=== PATIENT | male | born 1950 | race African-American/Black ===

== ENCOUNTER → 2017-02-09 18:57 | Outpatient (CLI) | payer MEDICARE ==
[2011-03-23 09:29] VITALS: BMI 35.0
== END | disposition home or self-care (01) ==
LOC: D.LABREF 18:57
DX: A54.9 Gonococcal infection, unspecified (principal)

== ENCOUNTER → 2017-03-01 10:04 | Outpatient (CLI) | payer MEDICARE ==
[2011-03-23 09:29] VITALS: BMI 35.0
== END | disposition home or self-care (01) ==
LOC: D.CT 10:04
DX: I73.9 Peripheral vascular disease, unspecified (principal)

== ENCOUNTER → 2017-04-04 11:26 | Outpatient (CLI) | payer MEDICARE ==
[2011-03-23 09:29] VITALS: BMI 35.0
== END | disposition home or self-care (01) ==
LOC: D.RAD 11:26
DX: Z11.1 Encounter for screening for respiratory tuberculosis (principal)

== ENCOUNTER → 2017-05-29 13:04 | Outpatient (CLI) | payer MEDICARE ==
[2011-03-23 09:29] VITALS: BMI 35.0
[~2017-05-29 13:04] MED LIST: ASPIRIN325 MG PO; BENADRYL25 MG PO; HYDROCODONE-APA1 TAB PO; LANOXIN125 MCG PO; METOPROLOL TART50 MG PO; MOBIC7.5 MG PO; NEXIUM40 MG PO; NORVASC10 MG PO; RENA-VITE TABL0.8 MG PO; RESTORIL15 MG PO; ZYLOPRIM100 MG PO
[2017-06-28 08:28] VITALS: BMI 33.7
== END | disposition home or self-care (01) ==
LOC: D.US 13:00
DX: M79.604 Pain in right leg (principal)

== ENCOUNTER → 2017-06-19 13:03 | Outpatient (CLI) | payer MEDICARE ==
[2011-03-23 09:29] VITALS: BMI 35.0
[2017-06-28 08:28] VITALS: BMI 33.7
== END | disposition home or self-care (01) ==
LOC: D.CT 06-12 11:00
DX: I73.9 Peripheral vascular disease, unspecified (principal)

== ENCOUNTER 2017-06-28 07:25 | Outpatient (CLI) | payer MEDICARE ==
[~2017-06-28] VITALS: Ht 185.4 cm; Wt 115.9 kg
--- NOTE | ~2017-06-28 | HEMODYNAMI ---
PATIENT:MORRO DAWSON MEDICAL RECORD: [id number] : 50 LOCATION:[facility] ADMISSION DATE: 06/28/17 Generatedon:06/28/201712:09 Patient name: MORRO DAWSON Patient #: [id number] SSN: : 1950 Date of study: 06/28/2017 Page: Of Hemodynamic Procedure Report Patient Data Patient Demographics Procedure consent was obtained First Name: MORRO Gender: Male Last Name: EUNICE : 1950 Middle Initial: JOSY Age: 66 year(s) Patient #: [id number] Race: Black Additional ID: [id number] Contact details Address: [address] [place] [address] State: [place] City: [facility] Zip code: [address] Admission Admission Data Admission Date: 06/28/2017 Admission Time: 7:25 Procedure Procedure Types Cath Procedure Peripheral Cath Diagnostic Procedure Abd/Extremity Extremities AFRO Lower Ext Arterio Procedure Description Procedure Date Procedure Date: 06/28/2017 Procedure Start Time: 10:00 Procedure Staff Name Function Henrry Carvalho MD Performing Physician Claude Burnham RT Monitor Aysha Jeffrey RN Nurse Jovita Rucker RN Nurse Procedure Data Cath Procedure Fluoroscopy Diagnostic fluoroscopy Total fluoroscopy Time: time: 28.4 min 28.4 min Diagnostic fluoroscopy Total fluoroscopy dose: dose: 1166 mGy 1166 mGy Contrast Material Contrast Material Type Amount (ml) Isovue 300 180 Entry Location Entry Primary Successful Side Size Upsize Upsize Entry Closure Succes sful Closure Location (Fr) 1 (Fr) 2 (Fr) Remarks Device Remarks Femoral Right 5 Fr 6 Fr Exoseal artery Long Procedure Medications Medication Administration Route Dosage Lidocaine 1% added to field 20 Heparin Flush Bag added to field 3 (1000units/500ml NS) Fentanyl I.V. 50 mcg Versed I.V. 1 mg Oxygen NC 3 l/min Fentanyl I.V. 50 mcg Versed I.V. 1 mg Fentanyl I.V. 50 mcg Versed I.V. 1 mg Versed I.V. 1 mg Fentanyl I.V. 50 mcg Heparin Bolus I.V. 5000 units Versed I.V. 1 mg Fentanyl I.V. 50 mcg Fentanyl I.V. 50 mcg Versed I.V. 1 mg Fentanyl I.V. 50 mcg Versed I.V. 1 mg Versed I.V. 1 mg Fentanyl I.V. 50 mcg Hemodynamics Rest Heart Rate: 59 (bpm) Snapshots Pre Cath Intra NCS Post Cath Vital Signs Time Heart Resp SPO2 etCO2 NIBP (mmHg) Rhythm Pain Status Sedation Rate (ipm) (%) (mmHg) Level (bpm) 9:57:49 58 15 94 25 151/74(123) NSR 4 (11) , 10(A) Distressing 10:02:11 59 20 95 37.9 146/78(119) NSR 4 (11) , 10(A) Distressing 10:06:33 58 16 95 34.9 142/66(117) NSR 3 (11) , 10(A) Tolerable 10:10:49 58 24 91 0 144/81(125) NSR 3 (11) , 10(A) Tolerable 10:15:05 59 1 99 26.5 128/70(109) NSR 2 (11) , 10(A) Uncomfortable 10:19:23 55 8 99 20.5 132/67(109) NSR 2 (11) , 8(A) Uncomfortable 10:23:41 54 13 99 28.1 139/68(109) NSR 2 (11) , 8(A) Uncomfortable 10:28:02 55 11 100 25 136/73(111) NSR 1 (11) , Very 8(A) mild 10:32:22 54 11 100 30.4 138/66(111) NSR 1 (11) , Very 8(A) mild 10:36:42 53 12 100 31.8 135/69(108) NSR 1 (11) , Very 8(A) mild 10:41:00 53 6 100 31.9 137/74(114) NSR 1 (11) , Very 8(A) mild 10:45:20 54 11 100 24.3 139/74(119) NSR 2 (11) , 8(A) Uncomfortable 10:49:40 55 4 98 0 133/75(114) NSR 1 (11) , Very 8(A) mild 10:53:56 53 5 98 28.8 125/77(114) NSR 1 (11) , Very 8(A) mild 10:58:55 52 6 99 28.1 Measuring NSR 1 (11) , Very 8(A) mild 10:59:01 52 6 99 28.1 137/71(114) NSR 1 (11) , Very 8(A) mild 11:04:00 52 8 99 29.6 Measuring NSR 1 (11) , Very 8(A) mild 11:04:07 53 8 99 30.4 132/65(112) NSR 1 (11) , Very 8(A) mild 11:09:05 52 7 99 33.4 Measuring NSR 1 (11) , Very 8(A) mild 11:09:14 52 7 100 31.1 140/70(116) NSR 1 (11) , Very 8(A) mild 11:14:13 60 7 99 30.3 Measuring NSR 1 (11) , Very 8(A) mild 11:14:15 60 7 99 30.3 132/77(110) NSR 1 (11) , Very 8(A) mild 11:18:35 52 4 100 36.4 140/69(118) NSR 1 (11) , Very 8(A) mild 11:23:34 54 5 100 17.4 Measuring NSR 1 (11) , Very 8(A) mild 11:23:36 53 5 100 17.4 139/75(113) NSR 1 (11) , Very 8(A) mild 11:27:56 52 3 97 23.5 137/75(104) NSR 1 (11) , Very 8(A) mild 11:32:08 50 10 96 31.8 133/77(115) NSR 1 (11) , Very 8(A) mild 11:37:07 50 13 95 28.8 Measuring NSR 1 (11) , Very 8(A) mild 11:37:26 59 10 95 28.8 134/75(127) NSR 1 (11) , Very 8(A) mild 11:41:46 51 6 96 32.6 144/72(113) NSR 1 (11) , Very 8(A) mild 11:46:08 52 7 94 39.4 143/75(111) NSR 1 (11) , Very 8(A) mild 11:50:28 51 13 95 39.4 140/77(116) NSR 1 (11) , Very 8(A) mild 11:55:27 51 7 93 31.1 Measuring NSR 1 (11) , Very 8(A) mild 11:55:35 51 7 93 31.1 136/72(99) NSR 1 (11) , Very 8(A) mild 12:00:34 94 31.1 Measuring NSR 1 (11) , Very 8(A) mild 12:00:51 94 32.6 136/76(114) NSR 1 (11) , Very 8(A) mild 12:05:50 96 36.4 Measuring NSR 1 (11) , Very 8(A) mild 12:05:58 96 32.6 157/72(129) NSR 1 (11) , Very 8(A) mild Medications Time Medication Route Dose Verified Delivered Reason Notes Ef fectiveness by by 10:02:03 Lidocaine 1% added 20ml M J Long M J Long used for to vial MD ANSARI procedure field 10:02:23 Heparin Flush added 3 b M J Long M J Long used for Bag to ags MD ANSARI procedure (1000units/500ml field NS) 10:02:37 Fentanyl I.V. 50 M J Long Jovita for sedation mcg MD Chaim BROOKS 10:02:49 Versed I.V. 1 mg M J Long Jovita for sedation MD Chaim BROOKS 10:03:02 Oxygen NC 3 M J Long Jovita l/min MD Chaim BROOKS 10:06:08 Fentanyl I.V. 50 M J Long Jovita for sedation mcg MD Chaim BROOKS 10:06:16 Versed I.V. 1 mg M J Long Jovita for sedation MD Chaim BROOKS 10:13:11 Fentanyl I.V. 50 M J Long Jovita for sedation mcg MD Chaim BROOKS 10:13:18 Versed I.V. 1 mg M J Long Jovita for sedation MD Chaim BROOKS 10:30:37 Versed I.V. 1 mg M J Long Jovita for sedation MD Chaim BROOKS 10:30:47 Fentanyl I.V. 50 M J Long Jovita for sedation mcg MD Chaim BROOKS 10:47:07 Heparin Bolus I.V. 5000 M J Long Jovita for units MD Chaim BROOKS antiplatelet therapy 10:47:22 Versed I.V. 1 mg M J Long Jovita for sedation MD Chaim BROOKS 10:47:30 Fentanyl I.V. 50 M J Long Jovita for sedation mcg MD Chaim BROOKS 11:17:32 Fentanyl I.V. 50 M J Long Jovita for sedation mcg MD Chaim BROOKS 11:17:38 Versed I.V. 1 mg M J Long Jovita for sedation MD Chaim BROOKS 11:26:47 Fentanyl I.V. 50 M J Long Jovita for sedation mcg MD Chaim BROOKS 11:26:54 Versed I.V. 1 mg M J Long Jovita for sedation MD Chaim BROOKS 11:37:06 Versed I.V. 1 mg M J Long Jovita for sedation MD Chaim BROOKS 11:37:13 Fentanyl I.V. 50 M J Long Jovita for sedation mcg MD Chaim BROOKS Procedure Log Time Note 9:29:14 Claude Burnham RT (R) (CV) sent for patient. Start room use. 9:29:26 Time tracking: Regular hours (M-F 7:00 - 5:00) 9:29:34 Plan of Care:Hemodynamics will remain stable., Cardiac rhythm will remain stable., Comfort level will be maintained., Respiratory function will remain adequate., Patient/ family verbilizes understanding of procedure., Procedure tolerated without complication., Recovers from procedure without complications.. 9:29:39 Patient received from Outpatients to IR Alert and oriented. Tansferred to table in Supine position. 9:29:42 Correct patient and procedure confirmed by team. 9:29:44 Signed procedure consent form obtained from patient. 9:29:45 ECG and BP/O2 sat monitors applied to patient. 9:29:46 Full Disclosure recording started 9:29:47 - 9:29:51 H&P Date Dictated: 06/28/2017 H&P Addendum completed by physician on day of procedure. (MUST COMPLETE FOR ALL OUTPATIENTS). 9:29:51 Pre-procedure instructions explained to patient. 9:29:52 Pre-op teaching completed and patient verbalized understanding. 9:29:53 Family in waiting room. 9:29:54 Patient NPO since Midnight. 9:29:58 Is the patient allergic to Iodine/contrast media? No. 9:30:00 Is patient on blood thinner?No 9:30:01 Patient diabetic? Yes. 9:30:04 If diabetic: On Metformin? No 9:30:06 - 9:30:06 ----Pre-sedation anethsthesia assessment.---- 9:30:08 Previous problem with sedation/anesthesia? No ? 9:30:09 Snore? Yes 9:30:11 Sleep apnea? Yes 9:30:13 Deviated septum? No 9:30:14 Opens mouth fully? Yes 9:30:15 Sticks out tongue? Yes 9:30:18 Airway obstruction? No ? 9:30:20 Dentures? No ? 9:30:26 Use device set IR Diagnostic 9:30:27 Tegaderm 4 x 4 (1626W) opened to sterile field. 9:30:28 Sterile Angiographic Pack opened to sterile field. 9:30:28 Bag Decanter (2002S) opened to sterile field. 9:30:30 ACIST Hand Control (42202) opened to sterile field. 9:30:30 ACIST Syringe (15665) opened to sterile field. 9:30:31 ACIST Manifold (63913) opened to sterile field. 9:43:46 Pre procedure: right dorsailis pedis pulse Doppler 9:43:57 Pre procedure: left dorsailis pedis pulse Doppler 9:44:08 Patient pain scale 0/10 no pain. 9:44:19 IV patent on arrival in right forearm with 0.9% NaCl at O. 9:44:21 Sharps counted by scrub and verified by R.N. 9:44:21 Alarms reviewed by R. N. 9:44:27 Bilateral groins area was prepped with chlora-prep and draped in steril e fashion 9:56:36 Vital chart was started 9:56:37 Baseline sample Acquired. 9:59:49 Physician arrived 9:59:50 --------ALL STOP TIME OUT------ 9:59:53 Bilateral groins site verified by team. 10:00:02 Sedation plan: IV Moderate Sedation Medication:Versed, Fentanyl 10:00:13 Final Timeout: patient, procedure, and site verified with staff and physician. All members of the team are in agreement. 10:00:26 Procedure started. 10:00:32 Local anesthetic to right femoral artery with Lidocaine 1% by Henrry Carvalho MD.INITIAL ACCESS ONLY 10:00:48 A 5 Fr sheath was inserted into the Right Femoral artery 10:01:27 Micropuncture VSI 4FR kit opened to sterile field. 10:01:28 DOC .035 wire (B42599) opened to sterile field. 10:01:29 SHEATH 5FR [place] (TCI251) opened to sterile field. 10:01:44 TUBING Contrast Injection High Pressure (BHB101B) opened to sterile field. 10:02:03 Lidocaine 1% 20ml vial added to field was administered by Henrry Carvalho MD; used for procedure; 10:02:23 Heparin Flush Bag (1000units/500ml NS) 3 b ags added to field was administered by Henrry Carvalho MD; used for procedure; 10:02:37 Fentanyl 50 mcg I.V. was administered by Jovita Rucker RN; for sedation ; 10:02:49 Versed 1 mg I.V. was administered by Jovita Rucker RN; for sedation; 10:03:02 Oxygen 3 l/min NC was administered by Jovita Rucker RN; ; 10:04:43 Angiodynamics Omniflush 5Fr 65cm (05083139) opened to sterile field. 10:06:08 Fentanyl 50 mcg I.V. was administered by Jovita Rucker RN; for sedation ; 10:06:16 Versed 1 mg I.V. was administered by Jovita Rucker RN; for sedation; 10:13:11 Fentanyl 50 mcg I.V. was administered by Jovita Rucker RN; for sedation ; 10:13:18 Versed 1 mg I.V. was administered by Jovita Rucker RN; for sedation; 10:27:50 GLIDE WIRE ANGLE 260cm (AB3165) opened to sterile field. 10:28:47 TORQUE DEVICE PLASTIC .038 ( TD01) opened to sterile field. 10:28:48 GLIDE CATHETER 5FR ANGLED 100cm (CG508) opened to sterile field. 10:30:37 Versed 1 mg I.V. was administered by Jovita Rucker RN; for sedation; 10:30:47 Fentanyl 50 mcg I.V. was administered by Jovita Rucker RN; for sedation ; 10:41:27 COLVIN 260 wire (T29134) opened to sterile field. 10:41:28 BENTSON 145cm wire (K93061) opened to sterile field. 10:41:28 CXI SUPPORT .035 135 CM STR catheter (N34150) opened to sterile field. 10:41:29 CHOICE PT Extra Support J 300cm guide wire ([id number]) opened to steril e field. 10:41:35 SHEATH 6FR Destination (RSR01) opened to sterile field. 10:41:49 Sheath upsized to a 6 Fr Long. 10:47:07 Heparin Bolus 5000 units I.V. was administered by Jovita Rucker RN; for antiplatelet therapy; 10:47:22 Versed 1 mg I.V. was administered by Jovita Rucker RN; for sedation; 10:47:30 Fentanyl 50 mcg I.V. was administered by Jovita Rucker RN; for sedation ; 10:55:41 CHOICE PT Extra Support J 300cm guide wire ([id number]) opened to steril e field. 11:01:00 CXI SUPPORT .018 150CM STR catheter (P15026) opened to sterile field. 11:05:33 Inflate balloon Inflation number: 1 A [place] Plus 2 x 2 x 130 Balloon ([id number]) was prepped and advanced across the Undefined1, then inflated 11:11:26 INFLATOR Merit BasixCompak (BB1514) opened to sterile field. 11:17:32 Fentanyl 50 mcg I.V. was administered by Jovita Rucker RN; for sedation ; 11:17:38 Versed 1 mg I.V. was administered by Jovita Rucker RN; for sedation; 11:19:15 [place] 1 Small Atherectomy catheter (H1S) opened to sterile field. 11:21:31 SPIDER EMBOLIC PROTECTION DEVICE 3MM ([id number]) opened to sterile field. 11:26:47 Fentanyl 50 mcg I.V. was administered by Jovita Rucker RN; for sedation ; 11:26:54 Versed 1 mg I.V. was administered by Jovita Rucker RN; for sedation; 11:34:56 Inflate balloon Inflation number: 2 A CHOCOLATE 2.5 x 40 x 150 balloon ([id number]) was prepped and advanced across the Undefined1, then inflated 11:37:06 Versed 1 mg I.V. was administered by Jovita Rucker RN; for sedation; 11:37:13 Fentanyl 50 mcg I.V. was administered by Jovita Rucker RN; for sedation ; 11:52:47 Sheath removed intact; hemostasis achieved with Exoseal to the Right Femoral artery. 11:52:53 Procedure ended.(Physican Out) 11:53:24 Fluoroscopy time 28.40 minutes. 11:53:32 Fluoroscopy dose: 1166 mGy 11:53:32 Flurop Dose total: 1166 11:53:39 EXOSEAL 6Fr (EX600) opened to sterile field. 11:53:43 Sharps counted by scrub and verified by R.N. 11:53:44 Insertion/operative site no bleeding no hematoma. 11:53:48 Post-op/insertion site Left Femoral artery dressed using a 4 x 4 and Tegaderm. 11:53:53 Post left femerol artery:stable 11:53:58 Post procedure instruction explained to patient.Patient verbalizes understanding. 11:53:58 Procedure and supply charges have been captured, reviewed, submitted an d are correct. 11:58:06 Contrast amount:Isovue 300 180ml. 11:58:22 Post procedure: right dorsailis pedis pulse Doppler. 11:58:26 Post procedure: left dorsailis pedis pulse 1+ Palpable, but thready & weak; easily obliterated. 12:08:40 Report given to Outpatients. 12:08:45 Patient transfered to Outpatients with Bed. 12:09:10 Vital chart was stopped Intervention Summary Intervention Notes Time ActionType Lesion and Equipment Used Action# Pressure Duration Attributes 11:05:33 Inflate Undefined1 [place] Plus 2 x 1 0 00:00 balloon 2 x 130 Balloon ([id number]) 11:34:56 Inflate Undefined1 CHOCOLATE 2.5 x 2 0 00:00 balloon 40 x 150 balloon ([id number]) Device Usage Item Name Manufacture Quantity Catalog Number [facility] Part [facility] Minimal Lot# / Charge Number Stock Stock Serial# Code Tegaderm 4 x 4 3M 1 1626W [id number] [id number] 995 501 5 (1626W) Sterile Cardinal 1 [id number] 275272 998 698 5 Angiographic Pack Health Bag Decanter Microtek 1 2001S 266127 05067 990 483 5 (2001S) Medical Inc. ACIST Hand Acist Medical 1 37777 395240 238393 992 030 5 Control (79309) Systems Inc ACIST Syringe Acist Medical 1 77546 681437 135833 991 608 20 (24831) Systems Inc ACIST Manifold Acist Medical 1 25694 733000 699030 992 047 5 (13377) Systems Inc Micropuncture VSI VSI VASCULAR 1 7266V 417717 999 518 5 4FR kit SOLUTIONS DOC .035 wire [facility] 1 H14814 683593 999 648 5 [id number] (O46541) SHEATH 5FR Terumo 1 NJW054 941540 994060 996 318 40 [place] (WIR009) TUBING Contrast [facility] 1 YIT134U 759166 022812 999 615 5 Injection High Pressure (URT281E) Angiodynamics Angiodynamics 1 [id number] 598107 212360 999 991 5 Omniflush 5Fr 65cm ([id number]) GLIDE WIRE ANGLE Terumo 1 PR4735 128385 193245 999 637 5 260cm (KA4827) TORQUE DEVICE [place] 1 TD01 585471 288804 999 519 5 PLASTIC .038 ( Scientific TD01) GLIDE CATHETER Terumo 1 CG508 855052 42786 999 908 4 5FR ANGLED 100cm (CG508) COLVIN 260 wire [facility] 1 W93298 595324 999 712 5 3321790 (V83893) BENTSON 145cm [facility] 1 B67167 229269 999 759 5 [id number] wire (E14201) CXI SUPPORT .035 [employer] 1 J99653 200274 548337 999 883 5 [id number] 135 CM STR catheter (S54281) CHOICE PT Extra [place] 2 [id number] 724503 854043 999 202 5 [id number] Support J 300cm Scientific [id number] guide wire ([id number]) SHEATH 6FR Terumo 1 RSR01 802064 38806 999 781 5 Destination (RSR01) CXI SUPPORT .018 [employer] 1 W32593 722490 228916 999 979 5 [id number] 150CM STR catheter (L24563) [place] Plus 2 x Medtronic 1 [id number] 708007 266348 999 998 5 2 x 130 Balloon ([id number]) INFLATOR [facility]it [facility] 1 QQ9212 107860 025035 994 982 15 BasixCompak (KM1642) [place] 1 Small Medtronic 1 H1-S 565661 0662309 999 980 5 Atherectomy catheter (H1S) SPIDER EMBOLIC Medtronic 1 [id number] 545221 999 990 5 PROTECTION DEVICE 3MM ([id number]) CHOCOLATE 2.5 x Cardinal 1 [id number] O 532052 734250 999 998 5 40 x 150 balloon Health TW ([id number]) EXOSEAL 6Fr Cardinal 1 EX600 458546 377367 998 034 10 [id number] (EX600) Health Signature Audit [place] Stage Time Signature Unsigned Intra-Procedure 06/28/2017 Claude 12:09:05 PM Carlaield RT (R) (CV) Signatures Monitor : Claude Signature : Carlaield RT Date : Time : [place] [id number] [facility] [place] [address]
[2017-06-28] MEDS ORDERED: NORVASC10 MG PO (08:15)
[2017-06-28] MEDS ORDERED: ZYLOPRIM100 MG PO (08:15)
[2017-06-28] MEDS ORDERED: RENA-VITE TABL0.8 MG PO (08:16)
[2017-06-28] MEDS ORDERED: METOPROLOL TART50 MG PO ×2 (08:16→08:17)
[2017-06-28] MEDS ORDERED: NEXIUM40 MG PO (08:17)
[2017-06-28] MEDS ORDERED: MOBIC7.5 MG PO (08:17)
[2017-06-28] MEDS ORDERED: LANOXIN125 MCG PO (08:18)
[2017-06-28] MEDS ORDERED: RESTORIL15 MG PO (08:18)
[2017-06-28] MEDS ORDERED: BENADRYL25 MG PO (08:19)
[2017-06-28] MEDS ORDERED: ASPIRIN325 MG PO (08:19)
[2017-06-28] MEDS ORDERED: HYDROCODONE-APA1 TAB PO (08:20)
[2017-06-28 08:28] VITALS: BP 133/67; Ht 185.4 cm; Wt 115.9 kg
[2017-06-28 08:55] LABS: EOSINOPHILS 15.5 % (0-7); HEMATOCRIT 36.4 % (42.0-54.0); HEMOGLOBIN 12.2 g/dL (13.5-17.5); IMMATURE GRANULOCYTES 0.1 % (0-5); LYMPHOCYTES 29.1 % (15-50); MCH 32.2 pg (26.0-34.0); MCHC 33.5 g/dL (31.0-37.0); MEAN PLATELET VOLUME 11.5 fL (7.4-10.4); MONOCYTES 8.9 % (2-11); NEUTROPHILS 45.4 % (40-80); PLATELET COUNT 154 10x3/uL (130-400); RBC 3.79 10x6/uL (4.20-6.10); RDW 14.3 % (11.5-14.5); WBC 7.2 10x3/uL (4.8-10.8)
[2017-06-28 09:09] LABS: ANION GAP 14.9 mmol/L (8-16); CALCIUM 9.2 mg/dL (8.5-10.1); CARBON DIOXIDE 29.8 mmol/L (21.0-32.0); CREATININE - SERUM 7.9 mg/dL (0.6-1.3); INR 0.94 (0.85-1.17); POTASSIUM - SERUM 4.7 mmol/L (3.5-5.1); PROTIME 12.2 SECONDS (11.6-15.0)
[2017-06-28 09:10] LABS: APTT 29.8 SECONDS (22.8-39.4)
== END 2017-06-28 17:00 | disposition home or self-care (01) ==
LOC: D.SP 07:25 → D.RAD 10:00 → D.SP 17:00
PROVIDERS: Radiology Vascular & Interventional Radiology
DX: I70.213 Atherosclerosis of native arteries of extremities with intermittent claudication, bilateral legs (principal); N18.6 End stage renal disease; Z01.812 Encounter for preprocedural laboratory examination

== ENCOUNTER → 2017-08-29 12:44 | Outpatient (CLI) | payer MEDICARE ==
[2017-06-28 08:28] VITALS: BMI 33.7
== END | disposition home or self-care (01) ==
LOC: D.MRI 12:44
DX: S83.232A Complex tear of medial meniscus, current injury, left knee, initial encounter (principal); X58.XXXA Exposure to other specified factors, initial encounter

== ENCOUNTER → 2017-09-18 09:23 | Outpatient (CLI) | payer MEDICARE ==
[2017-06-28 08:28] VITALS: BMI 33.7
== END | disposition home or self-care (01) ==
LOC: D.CT 09-17 13:00
DX: Q61.3 Polycystic kidney, unspecified (principal)

== ENCOUNTER → 2018-11-26 12:54 | Outpatient (CLI) | payer MEDICARE ==
[2017-06-28 08:28] VITALS: BMI 33.7
== END | disposition home or self-care (01) ==
LOC: D.CT 11-06 13:00
PROVIDERS: ATTEND Internal Medicine Nephrology
DX: Q61.3 Polycystic kidney, unspecified (principal)

== ENCOUNTER → 2019-02-27 12:58 | Outpatient (CLI) | payer MEDICARE ==
[2017-06-28 08:28] VITALS: BMI 33.7
== END | disposition home or self-care (01) ==
LOC: D.CT 12:58
PROVIDERS: ATTEND Internal Medicine Nephrology
DX: R10.9 Unspecified abdominal pain (principal)